=== PATIENT | female | born 1980 | race American Indian/Alaskan Native ===

== ENCOUNTER 2019-01-16 10:18 | Emergency (ER) | payer MEDICAID ==
[2019-01-16] MEDS ORDERED: TORADOL IV ONE (10:58)
--- NOTE | 2019-01-16 11:07 | Emergency Department Report ---
ED Seizure HPI - General Chief Complaint: Seizure Stated Complaint: CONVULSIONS Time Seen by Provider: 01/16/19 10:46 Source: EMS, old records reviewed (no previous [employer] records) Mode of arrival: Stretcher Limitations: No Limitations - History of Present Illness Initial Comments: 38-year-old female with a past medical history of seizure disorder presents to the hospital complaints of seizure. Patient was cooking breakfast and stated she did not feel well and she had a seizure witnessed by her son, fell backwards, struck her head. She is post ictal upon EMS arrival. Upon ED arrival she is alert and oriented 4. She is compliant with her Lamictal 150 mg a.m. and 200 mg p.m. dose. Last seizure was 3 months ago. She complains of headache, neck pain, and upper and lower back pain that is constant and worse with palpation. Overall pain is moderate in intensity. No place of blurred vision, focal weakness, vomiting, or focal numbness. Neurologist: Dr Beaulieu - Related Data Previous Rx's Medication Instructions Recorded Last Taken Type Ibuprofen [Motrin] 800 mg PO Q8HR PRN #30 tablet 01/16/19 Unknown Rx Allergies Allergy/AdvReac Type Severity Reaction Status Date / Time morphine Allergy Hives Verified 01/16/19 10:55 ED Review of Systems ROS: Stated complaint: CONVULSIONS Other details as noted in HPI Comment: All other systems reviewed and negative ED Past Medical Hx - Past Medical History Hx Headaches / Migraines: Yes Hx Seizures: Yes - Surgical History Past Surgical History?: No - Social History Smoking Status: Former Smoker Substance Use Type: Alcohol - Medications Home Medications: Home Medications Medication Instructions Recorded Confirmed Last Taken Type Ibuprofen [Motrin] 800 mg PO Q8HR PRN #30 tablet 01/16/19 Unknown Rx ED Physical Exam - General Limitations: No Limitations - Other Other exam information: General: No acute distress Eyes: Normal appearance, pupils equal reactive to light, extraocular movements intact ENT: Normal oropharynx Neck: Normal appearance, generalized cervical spine including midline tenderness, no meningismus Chest: Clear to auscultation bilaterally, no wheezes, rales, or crackles Cardiovascular: Regular rate and rhythm Abdomen: Soft, nondistended, nontender, no rebound or guarding, normal bowel sounds Back: Normal inspection, generalized lumbar back tenderness to palpation. Posterior thoracic tenderness Extremity: Normal inspection, no deformity, full range of motion Neuro: Alert and oriented 3, speech clear, no gross motor or sensory deficit Skin: No rash, warmth, or erythema ED Course Vital Signs 01/16/19 01/16/19 01/16/19 10:50 11:33 11:46 Temperature 98.0 F Pulse Rate 70 74 Respiratory 16 17 Rate Blood Pressure 132/88 124/80 O2 Sat by Pulse 93 100 100 Oximetry 01/16/19 12:00 Temperature Pulse Rate 64 Respiratory 20 Rate Blood Pressure 130/78 O2 Sat by Pulse 100 Oximetry ED Medical Decision Making - Lab Data Result diagrams: 01/16/19 11:58 01/16/19 11:58 Lab Results 01/16/19 01/16/19 Range/Units 11:58 11:58 WBC 6.8 (4.5-11.0) K/mm3 RBC 3.86 (3.65-5.03) M/mm3 Hgb 12.2 (10.1-14.3) gm/dl Hct 36.0 (30.3-42.9) % MCV 93 (79-97) fl MCH 32 (28-32) pg MCHC 34 (30-34) % RDW 13.3 (13.2-15.2) % Plt Count 269 (140-440) K/mm3 Sodium 139 (137-145) mmol/L Potassium 4.4 (3.6-5.0) mmol/L Chloride 102.8 (98-107) mmol/L Carbon Dioxide 27 (22-30) mmol/L Anion Gap 14 mmol/L BUN 9 (7-17) mg/dL Creatinine 0.6 L (0.7-1.2) mg/dL Estimated GFR > 60 ml/min BUN/Creatinine Ratio 15 % Glucose 83 (65-100) mg/dL Calcium 9.1 (8.4-10.2) mg/dL Magnesium 1.90 (1.7-2.3) mg/dL - Radiology Data Radiology results: report reviewed ct head: naf ct cervical spine: naf xr lumbar spine: naf xr t spine: naf - Medical Decision Making pain improved after toradol images naf f/u with neuro advised - Differential Diagnosis breakth seizure, medication noncompliance, intracranial hemorrhage, electro Critical Care Time: No Critical care attestation.: If time is entered above; I have spent that time in minutes in the direct care of this critically ill patient, excluding procedure time. ED Disposition Clinical Impression: Breakthrough seizure, Musculoskeletal pain Disposition: DC-01 TO HOME OR SELFCARE Is pt being admited?: No Does the pt Need Aspirin: No Condition: Stable Instructions: Epilepsy (ED), Musculoskeletal Pain (ED) Additional Instructions: Take the medications as prescribed. Follow-up with your doctor or with a doctor/clinic provided. Return is symptoms worsen as indicated by the discharge instructions. Prescriptions: Ibuprofen [Motrin] 800 mg PO Q8HR PRN #30 tablet PRN Reason: Pain, Moderate (4-6) Referrals: TANK IGLESIAS MD [Primary Care Provider] - 3-5 Days KAELYN BEAULIEU MD [Staff Physician] - 3-5 Days Time of Disposition: 13:46
--- NOTE | 2019-01-16 12:11 | XRay Report ---
CLINICAL DATA: thoracic back pain fall, sz TECHNICAL DATA: AP and lateral views were obtained of the thoracic spine. FINDINGS: The thoracic vertebrae have normal anatomic height and alignment. The disc spaces are normal. No sig nificant degenerative changes are present. No evidence of a fracture. There is no paraspinal edema or hemorrhage. IMPRESSION: Normal thoracic spine. Signer Name: Saw Cook MD Signed: 01/16/2019 12:06 PM Workstation Name: [id number]
--- NOTE | 2019-01-16 12:12 | XRay Report ---
CLINICAL DATA: lumbar back pain fall/sz TECHNICAL DATA: AP and lateral views lumbar spine. FINDINGS: The bone mineralization is normal. Vertebral body heights are normal. Intervertebral disc spaces are well maintained. Pedicles and spinous processes are normal in alignment. SI joints and sacrum are nor mal. IMPRESSION: Normal examination lumbar spine. Signer Name: Saw Cook MD Signed: 01/16/2019 12:07 PM Workstation Name: [id number]
[2019-01-16 12:31] LABS: Hemoglobin 12.2 gm/dl (10.1-14.3); Mean Corpuscular HGB Conc 34 % (30-34); Mean Corpuscular Volume 93 fl (79-97); Platelet Count 269 K/mm3 (140-440); Red Blood Count 3.86 M/mm3 (3.65-5.03); Red Cell Distribution Width 13.3 % (13.2-15.2)
[2019-01-16 12:34] LABS: BUN/Creatinine Ratio 15; Blood Urea Nitrogen 9 mg/dL (7-17); Calcium 9.1 mg/dL (8.4-10.2); Hemolysis Index 0
--- NOTE | 2019-01-16 13:02 | Cat Scan Report ---
CT HEAD WITHOUT CONTRAST INDICATION / CLINICAL INFORMATION: Seizure. Head injury. Headache. TECHNIQUE: All CT scans at this location are performed using CT dose reduction for ALARA by means of automated e xposure control. COMPARISON: None available. FINDINGS: HEMORRHAGE: No evidence of intracranial hemorrhage or extra-axial fluid collection. EXTRA-AXIAL SPACES: Cortical sulci, sylvian fissures and basilar cisterns have an unremarkable appear ance. VENTRICULAR SYSTEM: The ventricular system is of normal size and configuration. CEREBRAL PARENCHYMA: No areas of abnormal brain parenchymal attenuation are identified. There is no i ndication of recent infarction. MIDLINE SHIFT OR HERNIATION: There is no mass effect. CEREBELLUM / BRAINSTEM: Brainstem and cerebellum have an unremarkable appearance. INTRACRANIAL VESSELS:No abnormalities are identified on this noncontrast head CT. ORBITS: visualized portions of the orbits have an unremarkable appearance. SOFT TISSUES of HEAD: No significant abnormality. CALVARIUM: Evaluation of bone windows reveals no abnormalities. PARANASAL SINUSES / MASTOID AIR CELLS: Paranasal sinuses are free from inflammatory mucosal disease. Mastoid air cells are normally pneumatized. IMPRESSION: 1. No acute intracranial abnormality. Signer Name: Bayron Brothers MD Signed: 01/16/2019 12:58 PM Workstation Name: [id number]
--- NOTE | 2019-01-16 13:32 | Cat Scan Report ---
CT CERVICAL SPINE WITHOUT CONTRAST INDICATION / CLINICAL INFORMATION: Trauma. Patient fell secondary to seizure sustaining neck injury. Neck pain. TECHNIQUE: Axial CT images were obtained through the cervical spine. Sagittal and coronal reformatted images wer e produced. All CT scans at this location are performed using CT dose reduction for ALARA by means of automated exposure control. COMPARISON: None available. FINDINGS: There is no indication of fracture or traumatic subluxation. ALIGNMENT: Loss of the normal cervical lordosis is noted. No significant abnormalities of alignment a re identified. VERTEBRAE: No significant abnormality. DISC SPACES: No significant abnormality. Disc height is fairly well-maintained throughout. CRANIOCERVICAL JUNCTION:No significant abnormality. SPINAL CANAL: No significant abnormality. There is no indication of central canal stenosis. PARASPINAL SOFT TISSUES: No significant abnormality. LUNG APICES: No significant abnormality of visualized lungs. IMPRESSION: 1. No indication of fracture, traumatic subluxation or significant degenerative change. Signer Name: Bayron Brothers MD Signed: 01/16/2019 1:28 PM Workstation Name: [id number]
[2019-01-16 13:59] VITALS: BP 126/80
[2019-01-16 14:28] LABS: Basophils % (Manual) 0 % (0.0-1.8); Platelet Estimate Consistent w Auto; RBC Morphology Normal; Total Cells Counted 100
== END 2019-01-16 13:59 | disposition home or self-care (01) ==
LOC: ED 10:18
DX: G40.919 Epilepsy, unspecified, intractable, without status epilepticus (principal); G43.909 Migraine, unspecified, not intractable, without status migrainosus; M54.2 Cervicalgia; M54.5 Low back pain; Z88.6 Allergy status to analgesic agent; W19.XXXA Unspecified fall, initial encounter; Y93.G3 Activity, cooking and baking; Y92.89 Other specified places as the place of occurrence of the external cause; Y99.8 Other external cause status
CPT/HCPCS: 36415; 70450; 72072; 72100; 72125; 80048; 83735; 85007; 85025; 96374; 99285; J1885